=== PATIENT | male | born 1975 | race Caucasian/White ===

== ENCOUNTER 2020-11-13 16:46 | Emergency (ER) | payer OTHER | END 2020-11-13 18:17 | disposition home or self-care (01) | LOC: ER1 16:46 | DX: M79.671 Pain in right foot (principal); I96 Gangrene, not elsewhere classified; F17.210 Nicotine dependence, cigarettes, uncomplicated | CPT/HCPCS: 73630; 99283 ==

== ENCOUNTER 2021-01-27 12:47 | Emergency (ER) | payer OTHER ==
[2021-01-27 14:24] LABS: RED BLOOD COUNT 4.91 M/UL (4.20-5.50); WHITE BLOOD COUNT 11.9 K/UL (4.5-11.0)
[2021-01-27 14:42] LABS: BUN/CREATININE RATIO 21 (0-10)
== END 2021-01-27 21:30 | disposition short-term general hospital (02) ==
LOC: ER1 12:47
PROVIDERS: Physician Assistant
DX: I73.9 Peripheral vascular disease, unspecified (principal); F17.200 Nicotine dependence, unspecified, uncomplicated; Z20.822 Contact with and (suspected) exposure to COVID-19
CPT/HCPCS: 80053; 80307; 82550; 82553; 83874; 84484; 85025; 85610; 85652; 85730; 86140; 87040; 93005; 93926; 96374; 96375; 99284; J1170; J1885; J2270; J2405; J2543; J3370; J7030; J7070; U0002

== ENCOUNTER 2021-02-08 15:39 | Emergency (ER) | payer OTHER | END 2021-02-08 17:47 | disposition home or self-care (01) | LOC: ER1 15:39 | DX: G89.18 Other acute postprocedural pain (principal); S81.801D Unspecified open wound, right lower leg, subsequent encounter; I73.9 Peripheral vascular disease, unspecified; F17.200 Nicotine dependence, unspecified, uncomplicated | CPT/HCPCS: 99282 ==